=== PATIENT | female | born 1975 | race Two or more races ===

== ENCOUNTER 2016-11-24 07:26 | Emergency (ER) | payer MEDICAID ==
[~2016-11-24] VITALS: Ht 154.9 cm; Wt 57.2 kg
[2016-11-24 08:37] VITALS: BP 109/70
== END 2016-11-24 09:16 | disposition home or self-care (01) ==
LOC: ER 07:31
DX: J02.9 Acute pharyngitis, unspecified (principal); N18.6 End stage renal disease

== ENCOUNTER 2016-11-28 06:06 | Emergency (ER) | payer MEDICAID ==
[~2016-11-28] VITALS: Ht 154.9 cm; Wt 57.2 kg
[2016-11-28 06:45] VITALS: BP 102/70
[2016-11-28] MEDS ORDERED: LIDOCAINE 1% HCL (LOCAL ANESTH.) INJ 20ML MDV IN ONE (07:30)
[2016-11-28] MEDS ORDERED: methylPREDNISolone SOD SUCC 125 MG/2 ML VL IM ONE (07:30)
[2016-11-28] MEDS ORDERED: cefTRIAXone SOD 1,000 MG VL IM ONE (07:30)
== END 2016-11-28 08:11 | disposition home or self-care (01) ==
LOC: ER 06:07
DX: J03.90 Acute tonsillitis, unspecified (principal); N18.6 End stage renal disease
CPT/HCPCS: 96372; 99284; J0696; J2001; J2930

== ENCOUNTER 2016-12-01 10:11 | Emergency (ER) | payer MEDICAID ==
[~2016-12-01] VITALS: Ht 154.9 cm; Wt 57.2 kg
[2016-12-01 12:30] VITALS: BP 142/86
== END 2016-12-01 12:40 | disposition home or self-care (01) ==
LOC: ER 10:11
DX: J02.9 Acute pharyngitis, unspecified (principal); N18.6 End stage renal disease; R51 Headache

== ENCOUNTER 2017-05-25 06:39 | Emergency (ER) | payer MEDICAID ==
[~2017-05-25] VITALS: Ht 154.9 cm; Wt 57.6 kg
[2017-05-25 06:45] VITALS: BP 92/64
[2017-05-25 07:02] LABS: Urine Bilirubin Negative (Negative); Urine Blood Negative /uL (Negative); Urine Color Yellow (Yellow); Urine Glucose Normal (Normal); Urine Ketone Negative (Negative); Urine Nitrite Negative (Negative); Urine RBC 2 /hpf (0 - 4); Urine Squamous Epithelial Cell FEW /hpf (<5); Urine Urobilinogen Normal (Negative); Urine pH 5.5 (5.0-8.0)
== END 2017-05-25 08:02 | disposition home or self-care (01) ==
LOC: ER 06:39
DX: N39.0 Urinary tract infection, site not specified (principal)
CPT/HCPCS: 81001; 81025